=== PATIENT | female | born 1955 | race Caucasian/White ===

== ENCOUNTER 2016-07-28 15:43 | Emergency (ER) | payer BC, OTHER ==
[~2016-07-28] VITALS: Ht 175.3 cm; Wt 134.5 kg
[~2016-07-28 15:43] MED LIST: DAL15 PO; DIAZ-90 PO; OXYC-284 PO; OXYC60TA9 PO; ZOLP5TAB PO
[2016-07-28 15:45] VITALS: Ht 175.3 cm; Wt 134.5 kg
--- NOTE | 2016-07-28 15:59 | EN ---
Date/Time of Note Date/Time of Note DATE: 07/28/16 TIME: 15:58 ER Progress Note Medical screening exam performed. Patient reports intermittent pain in the left mastoid region the last 3 days. She has percussive tenderness in the left mastoid. Patient could benefit CT scan to rule out mastoiditis. EMIR SHEPHERD NP Jul 28, 2016 15:59
--- NOTE | 2016-07-28 16:49 | ERD ---
ER Documentation Chief Complaint Date/Time DATE: 07/28/16 TIME: 16:42 Chief Complaint stabbing pain behind left ear x3 days HPI 60-year-old female complaining of pain behind her left ear 3 days. Patient described pain as sharp, intermittent but persistent. She was experiencing pain every 30 seconds, the pain lasts about a few seconds each. Nothing makes pain worse or better. Patient reports slight cough in the last few days, but denies nasal congestion. Denies fever or chills. Denies ear pain. Denies sore throat or neck pain. ROS All systems reviewed and are negative except as per history of present illness. Medications Home Meds Active Scripts Acetaminophen* (Tylophen*) 500 Mg Capsule, 1 CAP PO Q6H Y for PAIN AND OR ELEVATED TEMP, #20 CAP Prov:EMIR SHEPHERD. FULL STACK DEVELOPER 07/28/16 Reported Medications Diazepam* (Valium*) 5 Mg Tablet, 10 MG PO BID, TAB 01/26/14 Flurazepam HCl* (Dalmane*) 15 Mg Capsule, 30 MG PO HS Y for INSOMNIA, CAP 01/26/14 Oxycodone Hcl* (Oxycontin*) 60 Mg Tab.sr.12h, 60 MG PO QID, TAB 01/26/14 Oxycodone Hcl-Acetaminophen* (Percocet*) 10-325 Mg Tablet, 1 TAB PO Q3H Y for PAIN, TAB 01/26/14 Zolpidem Tartrate* (Ambien*) 5 Mg Tablet, 5 MG PO HS Y for INSOMNIA, TAB 01/26/14 Allergies Allergies: Coded Allergies: ciprofloxacin (Verified Allergy, Severe, PAINFUL SKIN RASH, 01/26/14) Penicillins (Verified Allergy, Mild, RASH,DIFFICULTY BREATHING, 01/26/14) cephalexin (Verified Allergy, Mild, RASH,DIFFECULTY BREATHING, 01/26/14) PMhx/Soc History of Surgery: Yes (kidney,APPY, terrie foot ,C SECTION, GASTRIC BYPASS) Anesthesia Reaction: No Hx Neurological Disorder: No Hx Respiratory Disorders: No (PE,DVT) Hx Cardiac Disorders: Yes (HTN) Hx Psychiatric Problems: No Hx Miscellaneous Medical Probl: Yes (FIBROMYALGIA,UTI, KIDNEY STONES,) Hx Alcohol Use: No Hx Substance Use: No Hx Tobacco Use: No Physical Exam Vitals Vital Signs Date Time Temp Pulse Resp B/P Pulse Ox O2 Delivery O2 Flow Rate FiO2 07/28/16 15:45 98.5 85 20 178/83 96 Physical Exam General: Well-developed, well-nourished, conscious and coherent, in no distress Skin: Warm and dry without rash, good texture and turgor Head: Normocephalic without evidence of trauma Eyes: Sclera and conjunctivae normal; pupils equal, round, and reactive to light; extraocular movements are intact Ears: Canals are patent. Tympanic membranes are clear. Left post auricular region slightly swollen and tender to percussion, not erythematous, no lymphadenopathy. Nose/Face: Nasal mucosa swollen without rhinorrhea Mouth/throat: Mucous membranes are moist. Posterior pharynx clear without erythema or exudates Neck: Supple without meningismus or adenopathy. Carotids are equal. Trachea midline. No bruits or JVD Chest: Normal AP diameter. Good expansion without retractions. Nontender. Lungs are clear to auscultate bilaterally with good tidal volume Heart: Regular rate and rhythm. No murmur, rub, or gallops heard Neuro: Alert and oriented 4, GCS 15. Cranial nerves grossly intact. Motor and sensory exams nonfocal. Moves all extremities. Speech clear. Gait normal Results 24 hrs PROCEDURE: CT Brain without. CLINICAL INDICATION: Left mastoid pain. TECHNIQUE: A CT of the brain was performed on multidetector high-resolution CT scanner utilizing axial sections from the skull base through the vertex without contrast. The scan was reviewed in soft tissue brain and high frequency resolution bone algorithm windows. Images were reviewed on a high- resolution PACS workstation. One or more the following does reduction techniques were utilized: Automated exposure control, adjustment of the mA/ or kV according to patient's size, or use of iterative reconstruction technique. The exam CTDI = 43.27 mGy and the DLP = 720.23 mGy-cm. COMPARISON: Brain CT 01/26/2014. FINDINGS: The ventricles and sulci are mildly prominent indicative of volume loss. There is no intracranial hemorrhage, mass effect or midline shift. No abnormal intra- axial or extra-axial fluid collections are seen. The bell/white matter differentiation is preserved. There are mild scattered foci of hypoattenuation in the white matter, which are nonspecific in etiology but likely reflect chronic small vessel ischemic changes. There are mild intracranial vascular calcifications consistent with atherosclerosis. Hyperostosis frontalis interna is noted. The visualized paranasal sinuses are essentially clear. Few opacified bilateral mastoid air cells are noted. IMPRESSION: 1. No acute intracranial hemorrhage, transcortical infarction or mass effect. 2. Mild intracranial atherosclerosis and chronic small vessel ischemic changes. 3. Mild generalized cerebral volume loss. 4. Few opacified bilateral mastoid air cells. RPTAT: HH .Dawson Redman MD, MD Date Time Electronically viewed and signed by .Dawson Redman MD, MD on 07/28/2016 16: 56 .N/ CC: EMIR SHEPHERD NP PROCEDURE: CT Temporal Bones. CLINICAL INDICATION: Left mastoid pain. TECHNIQUE: On a multi detector CT scanner, volumetric data was acquired through the temporal bones with reconstruction of axial and coronal images. One or more the following does reduction techniques were utilized: Automated exposure control, adjustment of themA/ or kV according to patient's size, or use of iterative reconstruction technique. DLP 720.23 mGy-cm. CTDI 43.27 mGy. COMPARISON: Brain CT of the same day. FINDINGS: Right: The external auditory canal is normal in appearance. The tympanic membrane is thin without evidence of retraction. No soft tissue density is identified within the middle ear cavity. The middle ear ossicles are intact. Prussaks space is clear and the scutum demonstrates no evidence of erosion. The epitympanum is unremarkable. The epitympanic recess is clear. There is no evidence of dehiscence of the tegmen. The margins of the lateral and superior semicircular canals are intact. The vestibule and cochlea are normal in appearance. The internal auditory canal demonstrates no abnormality. The vestibular canal is not enlarged. The course of the facial nerve is unremarkable. Few opacified mastoid air cells are noted. Left: The external auditory canal is normal in appearance. The tympanic membrane is thin with no significant retraction. No soft tissue density is identified within the middle ear cavity. The middle ear ossicles are intact. Prussaks space is clear and the scutum demonstrates no evidence of erosion. The epitympanum is unremarkable. The epitympanic recess is clear. There is no evidence of dehiscence of the tegmen. The margins of the lateral and superior semicircular canals are intact. The vestibule and cochlea are normal in appearance. The internal auditory canal demonstrates no abnormality. The vestibular canal is not enlarged. The course of the facial nerve is unremarkable. The mastoid air cells are clear. The paranasal sinuses demonstrate mild scattered mucosal thickening mainly in left maxillary sinus. IMPRESSION: 1. Few opacified bilateral mastoid air cells. 2. Mild scattered paranasal sinus disease. 3. Otherwise unremarkable CT of the temporal bones. RPTAT: HH .Dawson Redman MD, Date Time Electronically viewed and signed by .Dawson Redman MD, on 07/28/2016 17: 20 .N/ CC: EMIR SHEPHERD. F[employer] STACK DEVELOPER Procedures/MDM Well-appearing 60-year-old female complaining of pain behind left ear [address] brain and CT temporal bone was obtained to rule out mastoiditis. No opacification was seen in the mastoid air cells bilaterally. I doubt that she has mastoiditis. Likely her pain is due to enlarged lymph nodes secondary to her viral UTI. Patient appears well, stable for discharge and outpatient management. Medical decision making shared with patient and family. Education provided to patient and family. Patient and family expressed understanding of the plan. Medications on discharge: Tylenol Follow-up: Primary care provider in 2-3 days or return to ED if worse. Departure Diagnosis: Primary Impression: Posterior auricular pain of left ear Condition: Stable EMIR SHEPHERD F[employer] STACK DEVELOPER Jul 28, 2016 16:49
--- NOTE | 2016-07-28 16:56 | RADRPT ---
PROCEDURE: CT Brain without. CLINICAL INDICATION: Left mastoid pain. TECHNIQUE: A CT of the brain was performed on multidetector high-resolution CT scanner utilizing a xial sections from the skull base through the vertex without contrast. The scan was reviewed in sof t tissue brain and high frequency resolution bone algorithm windows. Images were reviewed on a high -resolution PACS workstation. One or more the following does reduction techniques were utilized: Aut omated exposure control, adjustment of the mA/ or kV according to patient's size, or use of iterativ e reconstruction technique. The exam CTDI = 43.27 mGy and the DLP = 720.23 mGy-cm. COMPARISON: Brain CT 01/26/2014. FINDINGS: The ventricles and sulci are mildly prominent indicative of volume loss. There is no intracranial he morrhage, mass effect or midline shift. No abnormal intra-axial or extra-axial fluid collections ar e seen. The bell/white matter differentiation is preserved. There are mild scattered foci of hypoattenuation in the white matter, which are nonspecific in etiol ogy but likely reflect chronic small vessel ischemic changes. There are mild intracranial vascular calcifications consistent with atherosclerosis. Hyperostosis frontalis interna is noted. The visuali zed paranasal sinuses are essentially clear. Few opacified bilateral mastoid air cells are noted. IMPRESSION: 1. No acute intracranial hemorrhage, transcortical infarction or mass effect. 2. Mild intracranial atherosclerosis and chronic small vessel ischemic changes. 3. Mild generalized cerebral volume loss. 4. Few opacified bilateral mastoid air cells. RPTAT: HH .Dawson Redman MD, MD Date Time Electronically viewed and signed by .Dawson Redman MD, MD on 07/28/2016 16:56 .N/
--- NOTE | 2016-07-28 17:21 | RADRPT ---
PROCEDURE: CT Temporal Bones. CLINICAL INDICATION: Left mastoid pain. TECHNIQUE: On a multi detector CT scanner, volumetric data was acquired through the temporal bones with reconstruction of axial and coronal images. One or more the following does reduction techniques were utilized: Automated exposure control, adjus tment of themA/ or kV according to patient's size, or use of iterative reconstruction technique. DLP 720.23 mGy-cm. CTDI 43.27 mGy. COMPARISON: Brain CT of the same day. FINDINGS: Right: The external auditory canal is normal in appearance. The tympanic membrane is thin without e vidence of retraction. No soft tissue density is identified within the middle ear cavity. The midd le ear ossicles are intact. Prussaks space is clear and the scutum demonstrates no evidence of ero eleazar. The epitympanum is unremarkable. The epitympanic recess is clear. There is no evidence of deh iscence of the tegmen. The margins of the lateral and superior semicircular canals are intact. The vestibule and cochlea are normal in appearance. The internal auditory canal demonstrates no abnorma lity. The vestibular canal is not enlarged. The course of the facial nerve is unremarkable. Few op acified mastoid air cells are noted. Left: The external auditory canal is normal in appearance. The tympanic membrane is thin with no si gnificant retraction. No soft tissue density is identified within the middle ear cavity. The middl e ear ossicles are intact. Prussaks space is clear and the scutum demonstrates no evidence of eros ion. The epitympanum is unremarkable. The epitympanic recess is clear. There is no evidence of dehi scence of the tegmen. The margins of the lateral and superior semicircular canals are intact. The v estibule and cochlea are normal in appearance. The internal auditory canal demonstrates no abnormal ity. The vestibular canal is not enlarged. The course of the facial nerve is unremarkable. The mas toid air cells are clear. The paranasal sinuses demonstrate mild scattered mucosal thickening mainly in left maxillary sinus. IMPRESSION: 1. Few opacified bilateral mastoid air cells. 2. Mild scattered paranasal sinus disease. 3. Otherwise unremarkable CT of the temporal bones. RPTAT: .Dawson Redman MD, MD Date Time Electronically viewed and signed by .Dawson Redman MD, MD on 07/28/2016 17:20 .N/
[2016-07-28] MEDS ORDERED: ACET500C5 PO (17:48)
== END 2016-07-28 18:05 | disposition home or self-care (01) ==
LOC: FTE 15:43
DX: H92.02 Otalgia, left ear (principal); I10 Essential (primary) hypertension; R93.0 Abnormal findings on diagnostic imaging of skull and head, not elsewhere classified
CPT/HCPCS: 70450; 70480; Z7502